=== PATIENT | male | born 1970 | race Hispanic/Latino ===

== ENCOUNTER 2018-07-09 12:45 | Emergency (ER) | payer OTHER ==
[~2018-07-09] VITALS: Ht 167.6 cm; Wt 65.0 kg
[2018-07-09 13:00] VITALS: BP 114/66
[2018-07-09 13:07] LABS: HEMATOCRIT 37.7 % (39.0-50.0); HEMOGLOBIN 12.3 g/dl (14.0-18.0); IMMATURE GRANULOCYTES 0.4 % (0.0-5.0); MEAN CELL VOLUME 65.1 fL CALC (80.0-100.0); MEAN CORPUSCULAR HGB 21.2 pG CALC (26.0-32.0); MEAN CORPUSCULAR HGB CONC 32.6 g/L CALC (32.0-36.0); NEUT# 4.56 thou/uL (1.82-7.42); RED BLOOD COUNT 5.79 mill/uL (4.70-6.10); RED CELL DISTRI WIDTH 15.5 % (11.5-15.5)
[2018-07-13] MEDS ORDERED: PREDNISONE50 MG PO (09:59)
[2018-07-13] MEDS ORDERED: BENADRYL25 M1 PO (09:59)
== END 2018-07-09 13:10 | disposition short-term general hospital (02) | DRG 282 ==
LOC: ED 12:45
PROVIDERS: Family Medicine
DX: I21.3 ST elevation (STEMI) myocardial infarction of unspecified site (principal)

== ENCOUNTER 2019-11-13 | Emergency (ER) | payer OTHER ==
[~2019-11-13] MED LIST: BENADRYL25 M1 PO; PREDNISONE50 MG PO
[2019-11-13] MEDS ORDERED: KEFLEX500 MG PO (15:02)
[2019-11-13] MEDS ORDERED: IBUPROFEN600 MG PO (15:04)
== END 2019-11-13 15:10 | disposition home or self-care (01) | DRG 603 ==
DX: L03.011 Cellulitis of right finger (principal); F17.210 Nicotine dependence, cigarettes, uncomplicated

== ENCOUNTER 2022-03-26 07:43 | Emergency (ER) | payer OTHER ==
[2022-03-26] VITALS (12 sets, daily range): BP systolic 86–119; BP diastolic 56–76
[~2022-03-26] VITALS: Ht 167.6 cm; Wt 67.0 kg
[~2022-03-26 07:43] MED LIST changes: +IBUPROFEN600 MG PO; +KEFLEX500 MG PO
[2022-03-26 08:46] LABS: HEMATOCRIT 36.6 % (39.0-50.0); HEMOGLOBIN 11.5 g/dl (14.0-18.0); IMMATURE GRANULOCYTES 0.2 % (0.0-5.0); MEAN CELL VOLUME 66.2 fL CALC (80.0-100.0); MEAN CORPUSCULAR HGB 20.8 pG CALC (26.0-32.0); MEAN CORPUSCULAR HGB CONC 31.4 g/dL CAL (32.0-36.0); NEUT# 4.51 thou/uL (1.82-7.42); RED BLOOD COUNT 5.53 mill/uL (4.70-6.10); RED CELL DISTRI WIDTH 14.7 % (11.5-15.5)
[2022-03-26 08:49] LABS: GFR > 60 ML/MIN (>=60 (CALC)); GFR FOR AFR.AMER. > 60 ML/MIN (>=60 (CALC))
[2022-03-26 09:05] LABS: ALBUMIN 3.7 g/dL (3.2-5.0); ALKALINE PHOSPHATASE 77 u/l (38-126); ANION GAP 9 (6-22 (CALC)); BILIRUBIN, TOTAL 0.8 mg/dL (0.0-1.4); BUN 16 mg/dL (9-20); BUN/CREATININE RATIO 23 (12-20 (CALC)); CARBON DIOXIDE 28 mmol/l (22-30); CHLORIDE 105 mmol/l (95-108); CREATININE 0.7 mg/dL (0.7-1.3); GFR > 60 ML/MIN (>=60 (CALC)); GFR FOR AFR.AMER. > 60 ML/MIN (>=60 (CALC)); POTASSIUM 4.1 mmol/l (3.5-5.1); SGOT/AST 22 u/l (17-59); SODIUM 137 mmol/l (137-146); TOTAL PROTEIN 6.2 g/dL (6.3-8.2)
[2022-03-26] MEDS ORDERED: MOTRIN400 MG/TAB PO ×2 (10:02→13:00)
[2022-03-26] MEDS ORDERED: CLINDAMYCIN300 M1 PO ×2 (10:02→13:00)
== END 2022-03-26 11:15 | disposition home or self-care (01) | DRG 159 ==
LOC: ED 07:43
PROVIDERS: Family Medicine
DX: K04.7 Periapical abscess without sinus (principal); F17.200 Nicotine dependence, unspecified, uncomplicated
CPT/HCPCS: Q9967

== ENCOUNTER 2022-04-01 09:37 | Emergency (ER) | payer OTHER ==
[~2022-04-01] VITALS: Ht 167.6 cm; Wt 63.5 kg
[~2022-04-01 09:37] MED LIST changes: +CLINDAMYCIN300 M1 PO; +MOTRIN400 MG/TAB PO
[2022-04-01 09:52] VITALS: BP 102/65
[2022-04-01 10:00] VITALS: BP 99/64
[2022-04-01] MEDS ORDERED: CLINDAMYCIN300 M1 PO (10:21)
[2022-04-01 10:30] VITALS: BP 105/70
[2022-04-01 10:37] VITALS: BP 105/70
== END 2022-04-01 10:46 | disposition home or self-care (01) | DRG 159 ==
LOC: ED 09:37
PROC: 0C96XZZ Drainage of Lower Gingiva, External Approach (ICD-10-PCS; principal; 2022-04-01)
DX: K05.319 Chronic periodontitis, localized, unspecified severity (principal); F17.200 Nicotine dependence, unspecified, uncomplicated